=== PATIENT | male | born 1985 | race Caucasian/White ===

== ENCOUNTER 2017-01-26 18:01 | Emergency (ER) | payer SELFPAY ==
[~2017-01-26] VITALS: Ht 180.3 cm; Wt 70.0 kg
[2017-01-26] MEDS ORDERED: ULTRAM50 M1 PO (19:08)
[2017-01-26 19:15] VITALS: BP 132/85
== END 2017-01-26 19:25 | disposition home or self-care (01) | DRG 313 ==
LOC: ED 18:01
DX: R07.89 Other chest pain (principal); F17.210 Nicotine dependence, cigarettes, uncomplicated

== ENCOUNTER → 2018-04-29 | Outpatient (REF) ==
[~2018-04-29] MED LIST: ULTRAM50 M1 PO
== END | disposition home or self-care (01) | DRG 951 ==
LOC: PAGE 16:00
PROVIDERS: ATTEND Nurse Practitioner Family
DX: Z02.9 Encounter for administrative examinations, unspecified (principal)